=== PATIENT | female | born 1975 | race Caucasian/White ===

== ENCOUNTER 2019-01-15 12:41 | Inpatient (IN) | payer OTHER ==
[2019-01-15 13:29] VITALS: BMI 29.7
--- NOTE | 2019-01-15 14:23 | HP ---
COWS - Scale Resting Pulse: 2= NE 101-120 Sweatin= No chills or Flushing Restless Observation: 0= Sits Still Pupil Size: 0= Normal to Room Light Bone or Joint Aches: 0= None Runny Nose/ Eye Tearin= None GI Upset > 30mins: 0= None Tremor Observation: 0= None Yawning Observation: 0= None Anxiety or Irritability: 4=Extreme Anxiety Goose Flesh Skin: 0=Smooth Skin COWS Score: 6 CIWA Score - Admission Criteria OASAS Guidelines: Admission for Medically Managed Detox: Requires at least one of the followin. CIWA greater than 12 2. Seizures within the past 24 hours 3. Delirium tremens within the past 24 hours 4. Hallucinations within the past 24 hours 5. Acute intervention needed for co occurring medical disorder 6. Acute intervention needed for co occurring psychiatric disorder 7. Severe withdrawal that cannot be handled at a lower level of care (continued vomiting, continued diarrhea, abnormal vital signs) requiring intravenous medication and/or fluids 8. Admission ROS [facility] Allergies/Adverse Reactions: Allergies Allergy/AdvReac Type Severity Reaction Status Date / Time Androgenic Anabolic Steroid Allergy Intermediate Vomiting Verified 01/15/19 13: 24 tramadol [From Ultram] Allergy Intermediate Verified 01/15/19 13:24 History of Present Illness: Search Terms: ankur sweeney, 1975 Search Date: 01/15/2019 02:13:18 PM The Drug Utilization Report below displays all of the controlled substance prescriptions, if any, that your patient has filled in the last twelve months. The information displayed on this report is compiled from pharmacy submissions to the Department, and accurately reflects the information as submitted by the pharmacies. This report was requested by: Margy Walker | Reference #: [id number] There are no results for the search terms that you entered. This report was requested by: Margy Walker | Reference #: [id number] Prescriptions Dispensed in [place] Others' Prescriptions Patient Name: ANKUR SWEENEY Date: 1975 Address: [address] [place] [address] Sex: Female Rx Written Rx Dispensed Drug Strength Quantity Days Supply Prescriber Name 05/31/2015 05/31/2015 OXYCODONE HCL 15 MG TABLET 12 3 Ed Beckford 01/05/2015 01/05/2015 OXYCODONE HCL 30 MG TABLET 84 [facility] Name: ANKUR SWE[facility] Date: 1975 Address: [address] [place] [address] Sex: Female Rx Written Rx Dispensed Drug Strength Quantity Days Supply Prescriber Name 02/27/2015 02/27/2015 OXYCODONE HCL 30 MG TABLET 126 21 Demetri Edy 06/02/2015 06/02/2015 [facility]2015 03/21/2015 [facility] 05/04/2015 [facility] HCL 30 MG TABLET 126 [facility] 04/12/2015 04/12/2015 OXYCODONE HCL 30 MG TABLET 84 14 [facility] 04/27/2015 04/27/2015 OXYCODONE HCL 30 MG TABLET 42 [facility] 12/23/2014 12/23/2014 OXYCODONE HCL 30 MG TABLET 50 [facility] 12/29/2014 12/29/2014 OXYCODONE HCL 30 MG TABLET 50 [facility] 12/19/2014 12/19/2014 OXYCODONE HCL 30 MG TABLET 24 4 [facility] 01/18/2015 01/18/2015 O[facility]CODONE HCL 30 MG TABLET 84 [facility] 03/17/2014 03/17/2014 OXYCODONE HCL 30 MG TABLET 240 [facility] 11/11/2014 11/11/2014 MORPHINE SULFATE IR 15 MG TAB 90 30 Nicolette Baum 05/13/2014 05/13/2014 OXYCODONE HCL 30 MG TABLET 240 [facility] 02/01/2015 02/01/2015 OXYCODONE HCL 30 MG TABLET 126 21 [facility] Patient Name: ANKUR SWEENEY Date: 1975 Address: [address] [address] Sex: Female Rx Written Rx Dispensed Drug Strength Quantity Days Supply Prescriber Name 05/14/2014 05/14/2014 MORPHINE SULFATE IR 30 MG TAB 180 30 [facility] Patient Name: ANKUR SWEENEY Date: 1975 Address: [address] [address] Sex: Female Rx Written Rx Dispensed Drug Strength Quantity Days Supply Prescriber Name 08/26/2014 08/26/2014 MORPHINE SULFATE IR 30 MG TAB 90 30 Palmer Hackett 03/21/2014 03/21/2014 MORPHINE SULFATE IR 30 MG TAB 180 30 Ed Beckford Patient Name: ANKUR SWEENEY Date: 1975 Address: [address] [place] [id number] Sex: Female Rx Written Rx Dispensed Drug Strength Quantity Days Supply Prescriber Name 09/14/2014 09/14/2014 OXYCODONE HCL 30 MG TABLET 155 20 Palmer Hackett 09/14/2014 09/14/2014 OXYCODONE HCL 30 MG TABLET 45 5 Palmer Hackett Patient Name: ANKUR SWEENEY Date: 1975 Address: [address] [place] [id number] Sex: Female Rx Written Rx Dispensed Drug Strength Quantity Days Supply Prescriber Name 07/13/2014 07/14/2014 LORAZEPAM 1 MG TABLET 15 5 [place], Reed pt here requesting detox from opiate use , reports started using heroin 3 yrs ago when she could no longer get rx for Oxycodone and morphine for RSD , perineal pain , Crohn's dz PSHX : colon resection for Crohn's 2003 w/ ileostomy since then , surgeries for fistulas x 12 , C-sx , FIDELINA 03/28 " my body had been through enough " , Shoulder RTC left , CTS emeterio , ileostomy revision 2011 [facility] PMHX : DM diet- controlled , scleroderma in childhood , pancreatitis steroid -induced heroin : current daily 2-3 gr/day via IV in UE , denies abscess or OD , latest use 8 pm yesterday denies fentanyl use tobacco : 1 ppd denies other illicits or ETOH . shx : homeless , SSI for medical condition , 16 yr old son lives in [place] w/ maternal GP . Exam Limitations: No Limitations - Ebola screening Have you traveled outside of the country in the last 21 days: No Have you had contact with anyone from an Ebola affected area: No Do you have a fever: No - Review of Systems Constitutional: No Symptoms Reported EENT: reports: No Symptoms Reported Respiratory: reports: Cough (x 2 d) Cardiac: reports: No Symptoms Reported GI: reports: See HPI : reports: No Symptoms Reported Musculoskeletal: reports: No Symptoms Reported Integumentary: reports: See HPI Neuro: reports: No Symptoms reported Endocrine: reports: See HPI Psychiatric: reports: Orientated x3, Anxious Patient History - Smoking Cessation Smoking history: Never smoked - Substances abused Heroin Substance route: Injection Frequency: Daily Amount used: 2gms Age of first use: 39 Date of last use: 01/14/19 Admission Physical Exam BHS - Vital Signs Vital Signs: Vital Signs - 24 hr 01/15/19 13:26 Temperature 99.4 F Pulse Rate 108 H Respiratory 18 Rate Blood Pressure 143/86 - Physical General Appearance: Yes: Anxious HEENTM: Yes: EOMI, Hearing grossly Normal, Normocephalic, Normal Voice Respiratory: Yes: No Respiratory Distress, No Accessory Muscle Use, Rales (LLL) Neck: Yes: No masses,lesions,Nodules, Trachea in good position Cardiology: Yes: Regular Rhythm, Regular Rate, S1, S2, Tachycardia Abdominal: Yes: Other (ileostomy in place c/d/i) Musculoskeletal: Yes: Gait Steady Extremities: Yes: Normal Range of Motion, Non-Tender Neurological: Yes: Fully Oriented, Alert, Motor Strength 5/5, Depressed Affect Integumentary: Yes: Warm, Track Pate (emeterio wrists) - Diagnostic (1) Opioid use disorder Current Visit: Yes Status: Chronic Breathalyzer - Breathalyzer Breathalyzer: 0 Urine Drug Screen - Test Device Lot number: [id number] Expiration date: 09/23/20 - Control Is test valid?: Yes - Results Drug screen NEGATIVE: No Urine drug screen results: FEN-Fentanyl, MOP-Opiates Inpatient Rehab Admission - Rehab Decision to Admit Inpatient rehab admission?: No
[2019-01-15] MEDS ORDERED: ACETAMINOPHEN 325 MG TABLET (FP) PO PRN ×2 (14:45)
[2019-01-15] MEDS ORDERED: hydrOXYzine PAMOATE 25 MG CAPSULE (FP) PO PRN (14:45)
[2019-01-15] MEDS ORDERED: MENTHOL/PHENOL 1 EACH UD MM PRN (14:45)
[2019-01-15] MEDS ORDERED: PROCHLORPERAZINE MALEATE 5 MG TABLET PO PRN (14:45)
[2019-01-15] MEDS ORDERED: METHOCARBAMOL 500 MG TABLET PO PRN (14:45)
[2019-01-15] MEDS ORDERED: guaiFENesin 200 MG/10 ML 10 ML UNIT-DOSE CUPS PO PRN (14:45)
[2019-01-15] MEDS ORDERED: P-EPHED 60MG/TRIPROLIDI 2.5MG TABLET PO PRN (14:45)
[2019-01-15] MEDS ORDERED: MAGNESIUM CITRATE 300 ML BOTTLE PO PRN (14:45)
[2019-01-15] MEDS ORDERED: IBUPROFEN 400 MG TABLET (FP) PO PRN (14:45)
[2019-01-15] MEDS ORDERED: BISMUTH SUBSALICYLATE 262 MG/15 ML BTL PO PRN (14:45)
[2019-01-15] MEDS ORDERED: MAGNESIUM HYDROX 2400MG/30ML ORAL SUSPENSION 30 ML CUP PO PRN (14:45)
[2019-01-15] MEDS ORDERED: MAG HYDROX/AL HYDROX/SIMETH 30 ML UNIT-DOSE CUP PO PRN (14:45)
[2019-01-15] MEDS ORDERED: cloNIDine HCL 0.1 MG TABLET PO PRN (14:49)
[2019-01-15 18:42] LABS: HEMOGLOBIN 12.6 GM/dL (10.7-15.3); MCH 27.5 pg (25.7-33.7); MCHC 32.5 g/dl (32.0-36.0); MEAN CELL VOLUME 84.7 fl (80-96); MEAN PLT VOLUME 9.8 fl (7.5-11.1); PLATELET COUNT 345 K/MM3 (134-434); RDW 13.9 % (11.6-15.6); WHITE BLOOD COUNT 13.4 K/mm3 (4.0-10.0)
[2019-01-15 18:59] LABS: ALBUMIN 3.2 g/dl (3.4-5.0); BILIRUBIN,TOTAL 0.3 mg/dL (0.2-1); BLOOD UREA NITROGEN 6.9 mg/dL (7-18); CALCIUM 9.6 mg/dL (8.5-10.1); POTASSIUM 4.7 mmol/L (3.5-5.1); TOT PROT 8.3 g/dl (6.4-8.2)
[2019-01-15] MEDS ORDERED: METHADONE HCL 10 MG TABLET (FOR DETOX USE ONLY) PO ONE (21:00)
[2019-01-15] MEDS: THIAMINE HCL 100 MG TABLET (FP) PO SCH (21:14)
[2019-01-15] MEDS: NICOTINE POLACRILEX 2 MG GUM BUC PRN (21:15)
[2019-01-15] MEDS: MELATONIN 5 MG TABLETS PO PRN (22:35)
[2019-01-16] MEDS: NICOTINE POLACRILEX 2 MG GUM BUC PRN (07:43)
[2019-01-16] MEDS ORDERED: METHADONE HCL 5 MG TABLET (FOR DETOX USE ONLY) PO ONE (10:00)
[2019-01-16] MEDS: PRENATAL VITAMINS W/ FOLIC ACID TABLET (FP) PO SCH (10:13)
[2019-01-16] MEDS: NICOTINE 21 MG/24 HOURS TOPICAL PATCH TD SCH (11:00)
--- NOTE | 2019-01-16 15:50 | PN ---
BHS COWS - Scale Resting Pulse: 1= [place] 81-100 Sweatin= Chills/Flushing Restless Observation: 1= Difficult to Sit Still Pupil Size: 0= Normal to Room Light Bone or Joint Aches: 0= None Runny Nose/ Eye Tearin= None GI Upset > 30mins: 1= Stomach Cramp Tremor Observation of Outstretched Hands: 0= None Yawning Observation: 1= 1-2x During Session Anxiety or Irritability: 4=Extreme Anxiety Goose Flesh Skin: 0=Smooth Skin COWS Score: 9 BHS Progress Note (SOAP) Subjective: Anxious (Severe), Restless, Stomach Upset, Interrupted Sleep. Objective: PATIENT A & O X 3, OBSERVED AMBULATING ON DETOX UNIT UNASSISTED. IN NO ACUTE DISTRESS. 01/16/19 15:52 Vital Signs Temperature 97.1 F L 01/16/19 14:07 Pulse Rate 81 01/16/19 14:07 Respiratory Rate 16 01/16/19 14:07 Blood Pressure 131/76 01/16/19 14:07 O2 Sat by Pulse Oximetry (%) Laboratory Tests 01/15/19 01/15/19 01/15/19 15:00 15:00 15:00 WBC 13.4 H RBC 4.60 Hgb 12.6 Hct 39.0 MCV 84.7 MCH 27.5 MCHC 32.5 RDW 13.9 Plt Count 345 MPV 9.8 Sodium 131 L Potassium 4.7 Chloride 96 L Carbon Dioxide 29 Anion Gap 7 L BUN 6.9 L Creatinine 1.0 Est GFR (CKD-EPI)AfAm 79.91 Est GFR (CKD-EPI)NonAf 68.95 Random Glucose 398 H Calcium 9.6 Total Bilirubin 0.3 AST 23 ALT 22 Alkaline Phosphatase 94 Total Protein 8.3 H Albumin 3.2 L RPR Titer Nonreactive HIV 1&2 Antibody Screen HIV P24 Antigen 01/16/19 05:40 WBC RBC Hgb Hct MCV MCH MCHC RDW Plt Count MPV Sodium Potassium Chloride Carbon Dioxide Anion Gap BUN Creatinine Est GFR (CKD-EPI)AfAm Est GFR (CKD-EPI)NonAf Random Glucose Calcium Total Bilirubin AST ALT Alkaline Phosphatase Total Protein Albumin RPR Titer HIV 1&2 Antibody Screen Negative HIV P24 Antigen Negative LABS NOTED. TRACK CELAYA NOTED ON LEFT FOREARM / WRIST AREA. NO SWELLING, ERYTHEMA, OR DISCHARGE NOTED AT AFFECTED SITE. PATIENT DENEIS PAIN AT AFFECTED SITE. PATIENT REPORTS THAT SHE HAS BEEN EXPERIENCING A "COLD" RECENTLY. PATIENT DENIES ANY UNUSUAL URINARY COMPLAINTS (BURNING, PAIN, FREQUENCY, URGENCY , HESITANCY, VISUALIZATION OF BLOOD IN URINE). 01/16/19 15:55 Assessment: 01/16/19 15:52 WITHDRAWAL SYMPTOMS. LEUKOCYTOSIS. HYPERGLYCEMIA. 01/16/19 15:54 Plan: CONTINUE DETOX. INCREASE DAILY ORAL WATER INTAKE. UA ORDERED TO RULE OUT UTI. REPEAT CBC TOMORROW AM FOR ELEVATED WBC LEVEL NOTED ON DETOX ADMISSION LABORATORY ASSESSMENT. FASTING GLUCOSE LEVEL ORDERED FOR TOMORROW AM FOR ELEVATED RANDOM GLUCOSE LEVEL NOTED ON DETOX ADMISSION LABORATORY ASSESSMENT.
[2019-01-16] MEDS: MELATONIN 5 MG TABLETS PO PRN (21:32)
[2019-01-16] MEDS: THIAMINE HCL 100 MG TABLET (FP) PO SCH (21:32)
[2019-01-17] MEDS: NICOTINE 21 MG/24 HOURS TOPICAL PATCH TD SCH (09:00)
[2019-01-17] MEDS: PRENATAL VITAMINS W/ FOLIC ACID TABLET (FP) PO SCH (09:00)
[2019-01-17 09:33] VITALS: TEMP 98.1
[2019-01-17] MEDS ORDERED: METHADONE HCL 10 MG TABLET (FOR DETOX USE ONLY) PO ONE (10:00)
[2019-01-17] MEDS ORDERED: hydrOXYzine PAMOATE 25 MG CAPSULE (FP) PO PRN (10:05)
[2019-01-17] MEDS ORDERED: cloNIDine HCL 0.1 MG TABLET PO PRN ×2 (10:09→10:11)
[2019-01-17] MEDS ORDERED: METHADONE HCL 5 MG TABLET (FOR DETOX USE ONLY) PO ONE (10:15)
[2019-01-17] MEDS ORDERED: METHADONE HCL 5 MG TABLET (FOR DETOX USE ONLY) ONE (10:41)
[2019-01-17 12:12] LABS: BASO % 0.6 % (0-2.0); EOS % 0.7 % (0-4.5); HEMATOCRIT 40.2 % (32.4-45.2); HEMOGLOBIN 12.9 GM/dL (10.7-15.3); LYMPH % 23.9 % (8-40); MCH 27.2 pg (25.7-33.7); MCHC 32.1 g/dl (32.0-36.0); MEAN CELL VOLUME 84.6 fl (80-96); MONO % 4.4 % (3.8-10.2); NEUT % 70.4 % (42.8-82.8); PLATELET COUNT 368 K/MM3 (134-434); RBC 4.75 M/mm3 (3.60-5.2); RDW 14.3 % (11.6-15.6); WHITE BLOOD COUNT 13.5 K/mm3 (4.0-10.0)
[2019-01-17 13:46] VITALS: BP 120/79; PULSE 80
--- NOTE | 2019-01-17 16:45 | DS ---
[facility] Detox Discharge Summary Admission Date: 01/15/19 Discharge Date: 01/17/19 - History Present History: Opioid Dependence Additional Comments: Patient initially complained of increased withdrawal sxs stating that she does 30-40 bags of heroin daily and that her methadone protocol is not enough. Senior Mechanical Project Manager adjusted patient's detox protocol in which patient agreed. Patient later decided to leave AMA and told assigned RN that she has to leave because drugs are calling her. Patient told this internal communications writer that she wants to leave and will not stay and that she just wants to leave. Patient aware of abnormal lab results and elevated serum glucose in which she reported having DM. Patient instructed to call 911 ROSHNI if sick/withdrawal sxs and to see her PCP within 3 days in which she verbalized understanding. Patient left AMA in stable condition. Pertinent Past History: DM Nicotine dependence Opioid dependence - Physical Exam Results Vital Signs: Vital Signs Temperature 98.1 F 01/17/19 13:45 Pulse Rate 80 01/17/19 13:45 Respiratory Rate 16 01/17/19 13:45 Blood Pressure 120/79 01/17/19 13:45 O2 Sat by Pulse Oximetry (%) Pertinent Admission Physical Exam Findings: Withdrawal sxs Laboratory Tests 01/15/19 01/15/19 01/15/19 15:00 15:00 15:00 WBC 13.4 H RBC 4.60 Hgb 12.6 Hct 39.0 MCV 84.7 MCH 27.5 MCHC 32.5 RDW 13.9 Plt Count 345 MPV 9.8 Absolute Neuts (auto) Neutrophils % Lymphocytes % Monocytes % Eosinophils % Basophils % Nucleated RBC % Sodium 131 L Potassium 4.7 Chloride 96 L Carbon Dioxide 29 Anion Gap 7 L BUN 6.9 L Creatinine 1.0 Est GFR (CKD-EPI)AfAm 79.91 Est GFR (CKD-EPI)NonAf 68.95 Random Glucose 398 H Fasting Glucose Calcium 9.6 Total Bilirubin 0.3 AST 23 ALT 22 Alkaline Phosphatase 94 Total Protein 8.3 H Albumin 3.2 L RPR Titer Nonreactive HIV 1&2 Antibody Screen HIV P24 Antigen 01/16/19 01/17/19 01/17/19 05:40 07:35 07:35 WBC 13.5 H RBC 4.75 Hgb 12.9 Hct 40.2 MCV 84.6 MCH 27.2 MCHC 32.1 RDW 14.3 Plt Count 368 MPV 10.0 Absolute Neuts (auto) 9.5 H Neutrophils % 70.4 Lymphocytes % 23.9 Monocytes % 4.4 Eosinophils % 0.7 Basophils % 0.6 Nucleated RBC % 0 Sodium Potassium Chloride Carbon Dioxide Anion Gap BUN Creatinine Est GFR (CKD-EPI)AfAm Est GFR (CKD-EPI)NonAf Random Glucose Fasting Glucose 261 H Calcium Total Bilirubin AST ALT Alkaline Phosphatase Total Protein Albumin RPR Titer HIV 1&2 Antibody Screen Negative HIV P24 Antigen Negative Labs reviewed: serum glucose 261, wbc 13.4 (asymptomatic), Na 131, alb 3.2 ( patient instructed to follow up with PCP within 3 days for all abnormal lab results) - Medication Discharge Medications: Ambulatory Orders NK [No Known Home Medication] 01/15/19 - Diagnosis (1) Type 2 diabetes mellitus with hyperglycemia Status: Chronic (2) Nicotine dependence Status: Chronic (3) Hyponatremia Status: Acute (4) Hypoalbuminemia Status: Acute (5) Leukocytosis Status: Acute (6) Opioid use disorder Status: Acute - AMA Did Patient Leave Against Medical Advice: Yes (Instructed to call 911 ROSHNI if sick/withdrawal sxs)
[2019-01-18] MEDS ORDERED: METHADONE HCL 5 MG TABLET (FOR DETOX USE ONLY) PO ONE ×2 (06:00→10:00)
[2019-01-19] MEDS ORDERED: METHADONE HCL 5 MG TABLET (FOR DETOX USE ONLY) PO ONE (06:00)
== END 2019-01-17 14:38 | disposition home or self-care (01) | DRG 897 ==
LOC: YASAS 12:41 → Y6N 15:23
PROVIDERS: ADMIT Allergy & Immunology; ATTEND Allergy & Immunology
PROC: HZ2ZZZZ Detoxification Services for Substance Abuse Treatment (ICD-10-PCS; principal; 2019-01-15)
DX: F11.23 Opioid dependence with withdrawal (principal); E87.1 Hypo-osmolality and hyponatremia; F17.210 Nicotine dependence, cigarettes, uncomplicated; D72.829 Elevated white blood cell count, unspecified; E11.65 Type 2 diabetes mellitus with hyperglycemia; E88.09 Other disorders of plasma-protein metabolism, not elsewhere classified; Z88.8 Allergy status to other drugs, medicaments and biological substances; Z88.6 Allergy status to analgesic agent
CPT/HCPCS: 36415; 80053; 81025; 82947; 85025; 85027; 86593; 87389; J0735